=== PATIENT | female | born 1990 | race Two or more races ===

== ENCOUNTER 2022-06-06 19:55 | Emergency (ER) | payer OTHER ==
[~2022-06-06] VITALS: Ht 162.6 cm; Wt 70.3 kg
--- NOTE | 2022-06-06 21:17 | NUR ---
BIBS FOR C/O RADHA DOG BITE. TETANUS AND ALL DOG'S VACCINES UP TO DATE. AWAKE AND ALERTX4 AMBULATORY WITH STEADY GAIT. TO ER BED 4.
--- NOTE | 2022-06-06 22:06 | NUR ---
MD MCCRAY AT BEDSIDE FOR SUTURES
[2022-06-06] MEDS ORDERED: AMOX-430 PO (22:17)
[2022-06-06] MEDS ORDERED: IBUP-1955 PO (22:17)
--- NOTE | 2022-06-06 22:22 | NUR ---
Patient discharged to home in stable condition. Written and verbal after care instructions given. Patient verbalizes understanding of instruction.
[2022-06-06 22:27] VITALS: BP 115/82
== END 2022-06-06 22:27 | disposition home or self-care (01) ==
LOC: ER 19:57
DX: S41.112A Laceration without foreign body of left upper arm, initial encounter (principal); W54.0XXA Bitten by dog, initial encounter; Y93.89 Activity, other specified; Y92.89 Other specified places as the place of occurrence of the external cause; Y99.8 Other external cause status